=== PATIENT | female | born 1990 | race American Indian/Alaskan Native ===

== ENCOUNTER 2016-07-17 23:51 | Emergency (ER) | payer OTHER ==
[2016-07-18 00:15] VITALS: TEMP 98.1; O2SAT 99
--- NOTE | 2016-07-18 00:27 | C.PDOC ---
History Of Present Illness The patient, a 26 y/o female, presents to the ED for evaluation of an occipital headache and neck tenderness which began several days ago. Patient states she was evaluated by her PMD yesterday and was prescribed Fioricet. Patient states she medication has not been helping her and presents to the ED for further evaluation. She denies fever, chills, vision change, back pain, extremity numbness/weakness. Time Seen by Provider: 07/18/16 00:09 Chief Complaint (Nursing): Headache History Per: Patient History/Exam Limitations: no limitations Onset/Duration Of Symptoms: Days Current Symptoms Are (Timing): Still Present Quality: Aching, "Pain" Preceeding Symptoms: denies: Visual Disturbances, Known Migraine Symptoms Associated Symptoms: denies: Photophobia, Blurred Vision, Extremity Weakness Additional History Per: Patient Past Medical History Reviewed: Historical Data, Nursing Documentation, Vital Signs Vital Signs: Last Vital Signs Temp 98.1 F 07/18/16 00:09 Pulse 67 07/18/16 01:19 Resp 16 07/18/16 01:19 BP 136/61 07/18/16 01:19 Pulse Ox 99 07/18/16 05:24 - Medical History PMH: No Chronic Diseases Surgical History: No Surg Hx Family History: States: Unknown Family Hx Review Of Systems Except As Marked, All Systems Reviewed And Found Negative. Constitutional: Negative for: Fever, Chills Eyes: Negative for: Vision Change Musculoskeletal: Positive for: Neck Pain. Negative for: Back Pain Neurological: Positive for: Headache. Negative for: Weakness, Numbness Physical Exam - Physical Exam Appears: Non-toxic, No Acute Distress, Other (obese, black female ) Skin: Normal Color, Warm, Dry, No Rash Head: Atraumatic, Normacephalic, Tenderness (to occipital region on palpation ) Eye(s): bilateral: Normal Inspection, PERRL, EOMI Oral Mucosa: Moist Neck: Normal ROM, Supple Chest: Symmetrical, No Deformity, No Tenderness Cardiovascular: Rhythm Regular, No Murmur Respiratory: Normal Breath Sounds, No Rales, No Rhonchi, No Wheezing Back: Normal Inspection, No Vertebral Tenderness, No Paraspinal Tenderness Extremity: Normal ROM, Capillary Refill (less than 2 seconds ) Neurological/Psych: Oriented x3, Normal Speech, Normal Cognition, Other (no focal deficits ) Gait: Steady ED Course And Treatment O2 Sat by Pulse Oximetry: 99 (on RA) Pulse Ox Interpretation: Normal Progress Note: Patient received Toradol IM and Ultram PO. Reevaluation Time: 01:10 Reassessment Condition: Improved Medical Decision Making Medical Decision Making: occipital muscle tension headache, no neurological deficit Disposition Doctor Will See Patient In The: Office Counseled Patient/Family Regarding: Studies Performed, Diagnosis - Disposition Referrals: Jalen Chandra MD [Staff Provider] - Disposition: HOME/ ROUTINE Disposition Time: 01:12 Condition: GOOD Additional Instructions: Tramadol 50 mg tabs (narcotic) every 6 hours as needed for headache pain Motrin 600 mg every 6 hours as needed for headache pain pepcid 20 mg @ night to prevent stomach irritation from the Motrin Ice packs to the neck/back of your head for tension/inflammation relief. Avoid heat. Follow-up with your PMD as needed. Prescriptions: traMADol [Ultram] 50 mg PO Q6H PRN #20 tab PRN Reason: pain Instructions: General Headache (ED) - Clinical Impression Clinical Impression: Headache - Scribe Statement The provider has reviewed the documentation as recorded by the Scribe (Ana Maria Alfred) Provider Attestation: All medical record entries made by the Scribe were at my direction and personally dictated by me. I have reviewed the chart and agree that the record accurately reflects my personal performance of the history, physical exam, medical decision making, and the department course for this patient. I have also personally directed, reviewed, and agree with the discharge instructions and disposition.
[2016-07-18 01:23] VITALS: BP 136/61; PULSE 67; RESP 16
== END 2016-07-18 01:19 | disposition home or self-care (01) ==
LOC: C.ER 23:51
DX: R51 Headache (principal)
CPT/HCPCS: 96372; 99284; J1885

== ENCOUNTER 2017-04-17 01:50 | Emergency (ER) | payer BC, OTHER ==
--- NOTE | 2017-04-17 03:26 | C.PDOC ---
History Of Present Illness Patient presents to the ER with a complaint of flu like symptoms, cough, body aches, and not feeling well for the past 2 days. Patient reports she took 800 motrin with no relief. Denies recent travel, abdominal pain, vomiting, or diarrhea. Time Seen by Provider: 04/17/17 03:26 Chief Complaint (Nursing): Flu-like Symptoms History Per: Patient History/Exam Limitations: no limitations Onset/Duration Of Symptoms: Days Current Symptoms Are (Timing): Still Present Location Of Pain: Diffuse Myalgias Associated Symptoms: Cough, Myalgias, Other (Flu like symptoms) Ear Symptoms: Bilateral: None Severity: Moderate Pain Scale Rating Of: 4 Recent travel outside of the [place]: No Past Medical History Reviewed: Historical Data, Nursing Documentation, Vital Signs Vital Signs: Last Vital Signs Temp 99.7 F H 04/17/17 03:02 Pulse 84 04/17/17 03:02 Resp 16 04/17/17 03:02 BP 102/69 04/17/17 03:02 Pulse Ox 97 04/17/17 03:48 - Medical History PMH: Migraine Family History: States: No Known Family Hx - Social History Hx Alcohol Use: No Hx Substance Use: No - Immunization History Hx Tetanus Toxoid Vaccination: No Hx Influenza Vaccination: Yes Hx Pneumococcal Vaccination: No Review Of Systems Constitutional: Positive for: Other (Flu like symptoms) Respiratory: Positive for: Cough Gastrointestinal: Negative for: Nausea, Vomiting, Abdominal Pain Musculoskeletal: Positive for: Other (Body aches) Physical Exam - Physical Exam Appears: Non-toxic, Other (Morbidly obese) Skin: Warm, Dry Head: Normacephalic Ear(s): Bilateral: Normal Oral Mucosa: Moist Throat: Normal, No Erythema, No Exudate Chest: Symmetrical, No Tenderness Cardiovascular: Rhythm Regular Respiratory: No Rales, No Rhonchi, No Wheezing Gastrointestinal/Abdominal: Soft, No Tenderness Neurological/Psych: Oriented x3 ED Course And Treatment - Laboratory Results Result Diagrams: 04/17/17 04:23 O2 Sat by Pulse Oximetry: 97 (Room air) Pulse Ox Interpretation: Normal Progress Note: Blood work and flu swab ordered. Toradol administered. Reevaluation Time: 04:36 Reassessment Condition: Improved Disposition Counseled Patient/Family Regarding: Studies Performed, Diagnosis, Need For Followup, Rx Given - Disposition Referrals: Jalen Chandra MD [Staff Provider] - Disposition: HOME/ ROUTINE Disposition Time: 03:26 Condition: FAIR Prescriptions: Oseltamivir Phosphate [Tamiflu] 75 mg PO BID #10 capsule Instructions: Influenza (ED) Forms: [facility] (Guamanian), Work Excuse - Clinical Impression Clinical Impression: Influenza - Scribe Statement The provider has reviewed the documentation as recorded by the Scribe Logan Olvera All medical record entries made by the Scribe were at my direction and personally dictated by me. I have reviewed the chart and agree that the record accurately reflects my personal performance of the history, physical exam, medical decision making, and the department course for this patient. I have also personally directed, reviewed, and agree with the discharge instructions and disposition.
[2017-04-17 04:25] LABS: BASO % 0.5 % (0.0-2.0); EOS # 0.1 K/uL (0.0-0.7); EOS % 1.4 % (0.0-4.0); HEMOGLOBIN 12.3 g/dL (11.0-16.0); LYMPH # 2.2 K/uL (1.0-4.3); LYMPH % 30.9 % (20.0-40.0); MEAN CELL VOLUME 86.7 fL (81.0-99.0); MEAN CORPUSCULAR HEMOGLOBIN 30.3 pg (27.0-31.0); MEAN PLATELET VOLUME 8.7 fL (7.2-11.7); MONO # 0.5 K/uL (0.0-0.8); MONO % 6.8 % (0.0-10.0); NEUT # 4.3 K/uL (1.8-7.0); NEUT % 60.4 % (50.0-75.0); RBC 4.06 Mil/uL (3.80-5.20); RED CELL DISTRIBUTION WIDTH 12.7 % (11.5-14.5)
[2017-04-17 04:38] LABS: ALB/GLOB RATIO 0.9 (1.0-2.1); ALBUMIN 3.8 g/dL (3.5-5.0); ALT/SGPT 27 U/L (9-52); AST/SGOT 24 U/L (14-36); BLOOD UREA NITROGEN 9 mg/dL (7-17); CALCIUM 8.2 mg/dl (8.6-10.4); GFR AFRICAN-AMERICAN > 60; GFR NON-AFRICAN AMERICAN > 60
[2017-04-17 04:57] VITALS: BP 114/81; PULSE 99; RESP 20; TEMP 100.7; O2SAT 95
== END 2017-04-17 05:26 | disposition home or self-care (01) ==
LOC: C.ER 01:50
DX: J11.1 Influenza due to unidentified influenza virus with other respiratory manifestations (principal)
CPT/HCPCS: 80053; 85025; 87804; 96374; 99284; J1885

== ENCOUNTER 2018-08-14 15:06 | Emergency (ER) | payer BC ==
[2018-08-14 15:13] VITALS: BMI 62.1
[2018-08-14 15:16] VITALS: RESP 20; TEMP 98.8; O2SAT 98
--- NOTE | 2018-08-14 15:41 | C.PDOC ---
History Of Present Illness 28 year old female with no PMH presents to ED with throat pain x 1 week. Patient reports she was seen last week for GERD, started on prilosec and told to avoid spicy foods. Her chest discomfort improved but today she complains of ongoing pain with swallowing. Denies fever, chills, flu-like symptoms, ear pain, chest pain, shortness of breath, abdominal pain, NVD. Time Seen by Provider: 08/14/18 15:17 Chief Complaint (Nursing): ENT Problem History Per: Patient History/Exam Limitations: None Onset/Duration Of Symptoms: Days Current Symptoms Are (Timing): Still Present Past Medical History Vital Signs: Last Vital Signs Temp 98.8 F 08/14/18 15:13 Pulse 106 H 08/14/18 15:13 Resp 20 08/14/18 15:13 BP 146/92 H 08/14/18 15:13 Pulse Ox 98 08/14/18 15:13 Primary Care Provider: Jalen Chandra - Medical History PMH: Migraine Family History: States: Unknown Family Hx - Social History Hx Alcohol Use: No Hx Substance Use: No - Immunization History Hx Tetanus Toxoid Vaccination: No Hx Influenza Vaccination: Yes Hx Pneumococcal Vaccination: No Review Of Systems Constitutional: Negative for: Fever, Chills ENT: Negative for: Ear Pain Cardiovascular: Negative for: Chest Pain Respiratory: Negative for: Cough, Shortness of Breath Gastrointestinal: Negative for: Nausea, Vomiting, Abdominal Pain Genitourinary: Negative for: Dysuria Musculoskeletal: Negative for: Neck Pain Physical Exam - Physical Exam Appears: Non-toxic, No Acute Distress Skin: Warm, Dry Head: Atraumatic, Normacephalic Eye(s): bilateral: Normal Inspection Ear(s): Bilateral: Normal Nose: Normal, No Discharge Oral Mucosa: Moist Throat: Normal, No Erythema, No Exudate Neck: Supple Lymphatic: No Adenopathy Chest: Symmetrical Cardiovascular: Rhythm Regular Respiratory: Normal Breath Sounds, No Rales, No Rhonchi, No Wheezing Gastrointestinal/Abdominal: Soft, No Tenderness, No Distention, No Guarding, No Rebound Neurological/Psych: Oriented x3, Normal Speech ED Course And Treatment O2 Sat by Pulse Oximetry: 98 Medical Decision Making Medical Decision Making: Slightly tachycardic on arrival, HR down to 92 after seated for several minutes. Will add antacid to current regimen of prilosec. May take tylenol as needed for pain. Recommend follow up with PMD if symptoms not improving in next week Disposition Counseled Patient/Family Regarding: Diagnosis, Need For Followup, Rx Given - Disposition Disposition: HOME/ ROUTINE Disposition Time: 15:41 Condition: GOOD Additional Instructions: Follow up with Dr. Chandra if your symptoms do not improve in the next week Prescriptions: Acetaminophen [Acetaminophen Extra Strength] 500 mg PO .Q4-6 #30 tablet Aluminum Hydroxide/Magnesium H [Maalox 30 ml] 30 ml PO Q6 #500 ml Instructions: Acid Reflux (Gastroesophageal Reflux Disease), Adult (DC) Forms: [employer] (Hebrew) - Clinical Impression Clinical Impression: Throat pain - PA / [employer] / Resident Statement MD/DO has reviewed & agrees with the documentation as recorded.
[2018-08-14 15:55] VITALS: BP 147/90; PULSE 92
== END 2018-08-14 15:54 | disposition home or self-care (01) ==
LOC: C.ER 15:06
DX: R07.0 Pain in throat (principal)